=== PATIENT | female | born 1980 | race Caucasian/White ===

== ENCOUNTER 2023-06-26 00:25 | Day surgery (SDC) | payer OTHER, SELFPAY ==
[2023-06-20 14:12] VITALS: BMI 31.2
--- NOTE | 2023-06-20 14:20 | PC.NURSE ---
Addendum entered by Aung Day RN 06/23/23 16:20: Do not take Atomoxetine on the morning of surgery. Original Note: Report to the Outpatient Waiting Room, entrance under the green pavilion located off [facility], at time _1130_ on date _[id number]_. Planned Procedure Time: _130pm_. Time changes happen often and if your time is changed the preop area will call you the afternoon before. - You and your visitor will be asked to self-screen and do not enter if you have any COVID symptoms. - A mask is optional within the hospital at this time. Patients may have clear liquids (water, carbonated beverages, clear teas, apple juice) until 3 hours prior to surgery with a maximum of 20 ounces. - No food from midnight until time of surgery Take the following medications with a SIP of water the morning of surgery: ____Escitalopram, Atomoxetine and flonase DO NOT STOP ANY OF YOUR OTHER PRESCRIPTION MEDICATIONS PRIOR TO SURGERY ?EXCEPT THE FOLLOWING Medications to discontinue per physician ____Skip ro friday and stop multivitamin friday. Date to take last dose Please no make-up, nail sinhala, hairspray, perfume, deodorant, or body powder the day of surgery. No jewelry (including any body piercings) or valuables the day of surgery, leave them at home. Please take a shower or bath the night before, or the morning of, surgery with an antibacterial soap. Wear comfortable, loose fitting clothing. - Jewelry must be removed prior to entering the operating room. Rings and piercings that are not removed may be cut off. - The hospital will not accept responsibility for valuables. - Please leave all valuables, including medications, at home the day of surgery. If you are going home after surgery, a licensed tow driver must drive you home. - NO public transportation without another adult if you receive anesthesia. - We recommend that an adult stay with you for 24 hours following discharge. - We also recommend that you do not drive, make important decision, drink alcoholic beverages, or take any drugs that were not prescribed by your health care provider for at least 24 hours after your discharge time. Follow any additional instructions given to you from your surgeon. If you or anyone in your household have experienced Covid symptoms in the past week, please notify your surgeon or the nurse liaison at the phone number below for possible testing. Telephone instructions given to __Amy___and asked if any additional questions and then verbalized understanding. Patient advised to call surgeon office or pre surgery nurse liaison [phone] if any additional questions.
[2023-06-26] VITALS (8 sets, daily range): BP systolic 112–131; BP diastolic 55–77; PULSE 58–69; RESP 14–21; TEMP 36.2–36.7; O2SAT 99–100; BMI 31.3
[2023-06-26] MEDS: LACTATED RINGERS 1,000 ML 30 ML IV CONT ×2 (10:30→14:55)
[2023-06-26] MEDS: ACETAMINOPHEN 500 MG TABLET 1000 MG PO (10:37)
[2023-06-26] MEDS: KETOROLAC 15 MG/ML VIAL (*BKC) IV PUSH (10:37)
--- NOTE | 2023-06-26 11:39 | WPDANESEPPF ---
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 Patient Data Age: 42 Gender: F Height: 1.73 m Weight: 93.4 kg Last Vital Signs Temp 98.0 F 06/26/23 10:10 Pulse 69 06/26/23 10:10 Resp 14 06/26/23 10:10 BP 112/77 06/26/23 10:10 Pulse Ox 100 06/26/23 10:10 O2 Del Method Room Air 06/26/23 10:10 Allergies Allergy/AdvReac Type Severity Reaction Status Date / Time codeine AdvReac Intermediate Nervousness Verified 06/26/23 10:44 Home Medications Medication Instructions Recorded Confirmed Type atomoxetine 10 mg capsule 40 mg PO QAM 06/06/23 06/20/23 History fluticasone propionate 50 1 spray intranasal DAILY 06/06/23 06/26/23 History mcg/actuation nasal spray,suspension (Flonase Allergy Relief) multivitamin 1 tablet PO DAILY 06/06/23 06/26/23 History omeprazole 10 mg capsule,delayed 10 mg PO DAILY 06/06/23 06/20/23 History release tirzepatide 2.5 mg/0.5 mL 2.5 mg subcut WEEKLY 06/06/23 06/26/23 History subcutaneous pen injector (Mounjaro) escitalopram oxalate 20 mg tablet 20 mg PO DAILY 06/20/23 06/26/23 History oxycodone-acetaminophen 5 mg-325 1 - 2 tablet PO Q4-6H PRN pain #30 06/26/23 Rx mg tablet tabs Patient hx anesthesia problems: none Family hx anesthesia problems: none Results Review: All pre-operative results and documents have been reviewed as part of the pre-operative evaluation. [facility] Past Medical History Medical History Plantar fasciitis Surgical History Surgical History History of cholecystectomy (~2022) History of D&C multiple between [id number] History of right knee surgery (~2016) History of surgery on right wrist (~2002) Family History Family History Father Malignant neoplasm of prostate Social History Social History Smoking status: Never smoker Alcohol intake: current Do You Feel Safe in your Home?: Yes Lack of Transportation: No Lack of Food: Never True Current Housing: I Have Housing Concerned About Future Housing: No Difficulty Paying Gas/Electric Bills: No Difficulty Paying for Meds: No Currently Unemployed: No Education: Associate Degree Difficulty w/ Childcare or Family Care: No Living arrangements: with family Spiritual care concerns: No Anes - Eval Final PreProcedure Day of Procedure 06/26/23 11:39 Patient weight: obese Heart: regular rate and rhythm Lungs: clear to auscultation Airway: Mallampati scale class 1 Neurological: alert and oriented Last oral intake: >/= 8 hours ASA classification: II Emergent: no Anesthetic plan: proceed Anesthesia type and monitoring: general and standard monitoring Results Review: All pre-operative results and documents have been reviewed as part of the pre-operative evaluation. Pt off GLP1 for 10-11 days. Informed Consent: The patient's anesthetic plan and its attendant risks and benefits were discussed with the patient/family/POA. Questions were solicited and answers provided to the satisfaction of the patient/family/POA.
--- NOTE | 2023-06-26 11:55 | WPDHPUPDATE1 ---
History and Physical Update Update Date/Time: 06/26/23 11:55 History and Physical has been reviewed, including an updated exam of the patient. There are NO changes in the patient's condition. Risks, benefits, and alternatives have been discussed and questions answered. Patient agrees to proceed with procedure.
[2023-06-26] MEDS: ceFAZolin 2 GM/D5W 50 ML 2 GM/50 ML BAG IVPB (12:34)
[2023-06-26] MEDS: BUPivacaine HCL 0.5% 10 ML AMP INFILTRATE (13:36)
[2023-06-26] MEDS: oxyCODONE HCL (*CRX) 5 MG TAB IR PO (15:50)
--- NOTE | 2023-06-26 16:30 | W.PM.PROC2 ---
Procedure Note - Detailed Date of Procedure 06/26/23 Pre-op Diagnosis left thumb CMC joint arthritis Post-op Diagnosis Same Procedure Performed Left thumb CMC joint arthroscopic interposition arthroplasty. Surgeon Baudilio Pascaul MD [employer] Discovery Informatics Specialist Katarina Christiansen PA-C Anesthesia General Findings Moderate to severe degenerative arthritis with exposed bone and extensive cartilage debris. Description of Procedure Preoperative antibiotics were given. The patient was given a general anesthetic. The hand was prepped and draped in the usual sterile fashion. The arm was stabilized to the arm board, and a non sterile tourniquet placed. The suspension apparatus was draped sterilely. The thumb was attached to the fingertrap with 5 to 8 pounds of traction. Careful palpation revealed the location of the basal thumb joint. The limb was exsanguinated and the tourniquet inflated to 250 milliliters of mercury during the procedure. Shallow skin incisions were created for typical ulnar and radial portal sites. Careful blunt dissection was carried down to the joint, and the small joint 2.7mm arthroscope was introduced. Inspection revealed significant synovitis and degenerative changes with exposed bone. Partial resection of the trapezoid was carried out with the 2.9 millimeter josé manuel. Approximately 3 to 4 millimeters of bone was resected. Careful attention to the periphery of the bone was accomplished, and the tissue was carefully debrided with the shaver. The radiofrequency probe was also used to ablate some of the soft tissues. The ligamentous structures were carefully preserved at the capsule. The joint space was measured. Graft jacket was reconstituted in saline and cut to be folded into double thickness. The graft was brought in through the portal with a hemostat. The graft was laid in nicely and the arthroscope was used to inspect the graft and assure appropriate placement. The joint surface was well covered. The arthroscopic instruments were removed. Traction was released. The wound was closed with interrupted 3-0 Prolene suture followed by bulky dressing. A thumb spica splint was applied. The patient was extubated and brought to the recovery room in stable condition. There were no complications. 10 milliliters of 0.5% Marcaine with epinephrine was injected for additional perioperative pain control. Implants Graft jacket 2 cm x 4 cm size. 1-2 mm standard thickness. Estimated Blood Loss 5 Drains No Packing No Pathology None sent Complications No immediate complications Condition Stable Disposition PACU [facility] Billing Surgery - Charge Forward: Surgery Billing
== END 2023-06-26 16:20 | disposition home or self-care (01) ==
PROVIDERS: PCP Nurse Practitioner Family; Visit Provider Orthopaedic Surgery
PROC: (CPT 29840; principal; 2023-06-26 13:30)
DX: M18.9 Osteoarthritis of first carpometacarpal joint, unspecified (principal); E66.9 Obesity, unspecified; Z68.31 Body mass index [BMI] 31.0-31.9, adult; Z79.85 Long-term (current) use of injectable non-insulin antidiabetic drugs; Z79.891 Long term (current) use of opiate analgesic; Z98.890 Other specified postprocedural states; Z90.49 Acquired absence of other specified parts of digestive tract; Z80.42 Family history of malignant neoplasm of prostate
CPT/HCPCS: 25447; A4565; A9270; J0690; J1100; J1885; J2250; J2405; J2704; J3010; J7120

== ENCOUNTER 2024-01-07 09:18 | Outpatient (CLI) | payer OTHER, SELFPAY ==
--- NOTE | ~2024-01-07 | XR_ITS ---
EXAMINATION: XR hand LT min 3V DATE: 01/07/2024 09:39 INDICATION: Other specified post procedural states. TECHNIQUE: 3 views of left hand were obtained. COMPARISON: Left hand radiographs 09/03/2023 FINDINGS: Alignment is normal. No fracture. There is severe osteoarthritis of first carpometacarpal j oint and mild osteoarthritis of fifth proximal interphalangeal joint. IMPRESSION: 1. Polyarticular osteoarthritis. Reviewed, dictated and finalized at location A. [facility] [employer]
== END 2024-01-07 09:19 | disposition home or self-care (01) ==
PROVIDERS: PCP Nurse Practitioner Family; Visit Provider Orthopaedic Surgery
DX: M19.042 Primary osteoarthritis, left hand (principal); Z98.890 Other specified postprocedural states
CPT/HCPCS: 73130